=== PATIENT | female | born 1995 | race Caucasian/White ===

== ENCOUNTER 2016-09-22 04:03 | Emergency (ER) | payer OTHER ==
[~2016-09-22] VITALS: Ht 167.6 cm; Wt 121.6 kg
[2016-09-22 04:03] VITALS: BP 124/89
[~2016-09-22 04:03] MED LIST: birth control
[2016-09-22] MEDS ORDERED: HYDROcodone/APAP 5/325MG 1 TAB TABLET PO ONE (04:30)
--- NOTE | 2016-09-22 05:56 | ED.ADGEN ---
Past Medical History Past Medical History: Asthma, Other Additional Past Medical Histor: MRSA Past Surgical History: Tonsillectomy, Other Additional Past Surgical Histo: "on the back of my knee for MRSA"- L knee, wisdom teeth Alcohol Use: Occasionally Drug Use: None Adult General Chief Complaint Chief Complaint: FACE PAIN HPI HPI Patient is a 21 year old female who presents with dental pain. Patient reports pain tenderness swelling toright lower posterior lower. No dysphonia and dysphagia, drooling or trismus. took ibuprofen and hydrocodone prior to ED arrival without significant improvement. Review of Systems Review of Systems Via symptoms as prescribed. All other review symptoms are negative. Current Medications Current Medications Current Medications Medications (Trade) Dose Ordered Sig/Chen Start Time Stop Time Status Last Admin Dose Admin Acetaminophen/ Hydrocodone Bitart (Lortab 5/325) 1 tab 1X ONCE 09/22/16 04:30 09/22/16 04:31 DC 09/22/16 04:33 1 TAB Allergies Allergies Allergies Coded Allergies Type Severity Reaction Last Updated Verified No Known Drug Allergies 10/28/13 No Physical Exam Physical Exam Constitutional: Well developed, well nourished, no acute distress, non-toxic appearance. [] HENT: Normocephalic, atraumatic, bilateral external ears normal, oropharynx moist, posterior molar, pain tenderness, no soft tissue facialswelling or abscess. No hoarseness, droolingor trismus. Eyes: PERRLA, EOMI, conjunctiva normal, no discharge. Current Patient Data Vital Signs Vital Signs Date Time Temp Pulse Resp B/P (MAP) Pulse Ox O2 Delivery O2 Flow Rate FiO2 09/22/16 04:33 16 09/22/16 04:03 98.4 94 98 Room Air 98.4 EKG EKG [] Radiology/Procedures Radiology/Procedures [] Course & Med Decision Making Course & Med Decision Making Pertinent Labs and Imaging studies reviewed. (See chart for details) [Pain addressed.. Antibiotics prescribed with recommendation of early dental follow-up.] Dragon Disclaimer Dragon Disclaimer This electronic medical record was generated, in whole or in part, using a voice recognition dictation system. EDWIN HENRY DO Sep 22, 2016 05:56
== END 2016-09-22 04:35 | disposition home or self-care (01) ==
LOC: ER 04:03
DX: K08.89 Other specified disorders of teeth and supporting structures (principal); J45.909 Unspecified asthma, uncomplicated; Z86.14 Personal history of Methicillin resistant Staphylococcus aureus infection
CPT/HCPCS: 99283

== ENCOUNTER 2017-10-10 19:20 | Emergency (ER) | payer OTHER ==
[~2017-10-10] VITALS: Ht 170.2 cm; Wt 83.9 kg
[2017-10-10 20:57] VITALS: BP 133/87
--- NOTE | 2017-10-10 21:16 | PHYS DOC ---
Past Medical History Past Medical History: Asthma, Other Additional Past Medical Histor: MRSA Past Surgical History: Tonsillectomy, Other Additional Past Surgical Histo: "on the back of my knee for MRSA"- L knee, wisdom teeth Alcohol Use: Occasionally Drug Use: None Adult General Chief Complaint Chief Complaint: Neck Pain HPI HPI Patient is a 22 year old female presents to the ED complaining of lymph node swelling 1 day. States she woke up and felt a swollen lymph node on the right side of her neck. States she has had a runny nose since yesterday. Denies chest pain, shortness of breath, weight loss, night sweats, fever, sore throat, ear pain, itchy or watery eyes, dizziness, headache, nausea/vomiting or diarrhea. Review of Systems Review of Systems Constitutional: Denies fever or chills [] Eyes: Denies change in visual acuity, redness, or eye pain [] HENT: Complains of rhinorrhea. Denies sore throat [] Respiratory: Denies cough or shortness of breath [] Cardiovascular: No additional information not addressed in HPI [] GI: Denies abdominal pain, nausea, vomiting, bloody stools or diarrhea [] : Denies dysuria or hematuria [] Musculoskeletal: Denies back pain or joint pain [] Integument: Denies rash or skin lesions [] Neurologic: Denies headache, focal weakness or sensory changes []] All other systems were reviewed and found to be within normal limits, except as documented in this note. Allergies Allergies Allergies Coded Allergies Type Severity Reaction Last Updated Verified No Known Drug Allergies 10/28/13 No Physical Exam Physical Exam Constitutional: Well developed, well nourished, no acute distress, non-toxic appearance. [] HENT: Normocephalic, atraumatic, bilateral external ears normal, oropharynx moist, no oral exudates, nose normal. [] Eyes: PERRLA, EOMI, conjunctiva normal, no discharge. [] Neck: Normal range of motion, no tenderness, supple, no stridor. pea sized soft mobile anterior cervical chain lymphadenopathy. not hard or fixed.[] Cardiovascular:Heart rate regular rhythm, no murmur [] Lungs & Thorax: Bilateral breath sounds clear to auscultation [] Abdomen: Bowel sounds normal, soft, no tenderness, no masses, no pulsatile masses. [] Skin: Warm, dry, no erythema, no rash. [] Back: No tenderness, no CVA tenderness. [] Extremities: No tenderness, no cyanosis, no clubbing, ROM intact, no edema. [] Neurologic: Alert and oriented X 3, normal motor function, normal sensory function, no focal deficits noted. [] Psychologic: Affect normal, judgement normal, mood normal. [] Current Patient Data Vital Signs Vital Signs Date Time Temp Pulse Resp B/P (MAP) Pulse Ox O2 Delivery O2 Flow Rate FiO2 10/10/17 20:57 98.3 88 18 133/87 (102) 99 Room Air 98.3 EKG EKG [] Radiology/Procedures Radiology/Procedures [] Course & Med Decision Making Course & Med Decision Making Pertinent Labs and Imaging studies reviewed. (See chart for details) []Patient's lymph node swelling is most likely due to viral illness. Discussed symptomatic treatment, hydration and otc medications outpatient. Discussed observing lymph node and following up with PCP outpatient. Provided contact information/education. Discussed symptoms to return to the ED. Patient understands and agrees with plan. Dragon Disclaimer Dragon Disclaimer This electronic medical record was generated, in whole or in part, using a voice recognition dictation system. Departure Departure Impression: Primary Impression: Viral illness Additional Impression: Lymphadenopathy Disposition: 01 HOME, SELF-CARE Condition: STABLE Referrals: NO PCP (PCP) JENNIFER SIMPSON MD Patient Instructions: Viral Infections Problem Qualifiers GUERA MURO Oct 10, 2017 21:16
== END 2017-10-10 21:56 | disposition home or self-care (01) ==
LOC: ER 19:20
DX: R59.0 Localized enlarged lymph nodes (principal); B34.9 Viral infection, unspecified; J45.909 Unspecified asthma, uncomplicated; Z90.89 Acquired absence of other organs
CPT/HCPCS: 99281

== ENCOUNTER 2017-10-29 17:06 | Emergency (ER) | payer SELFPAY ==
[~2017-10-29] VITALS: Ht 170.2 cm; Wt 87.1 kg
[2017-10-29] MEDS ORDERED: DIPHTH,PERTUSS(ACELL),TET TOX 0.5 ML DISP.SYRIN. VAX IM ONE (18:00)
--- NOTE | 2017-10-29 18:01 | PHYS DOC ---
Past Medical History Past Medical History: Asthma, Other Additional Past Medical Histor: MRSA Past Surgical History: Tonsillectomy, Other Additional Past Surgical Histo: "on the back of my knee for MRSA"- L knee, wisdom teeth Alcohol Use: Occasionally Drug Use: None Adult General Chief Complaint Chief Complaint: ANKLE PROBLEM HPI HPI Patient is a 22 year old female with history of asthma who presents today complaining of 8 out of 10 sharp right lateral ankle pain worse on weight- bearing that began today after she tripped and fell in her driveway. Patient denies any loss of consciousness, denies hitting her head on the ground. She states she has not taken anything for her pain. Denies any chance she is . Review of Systems Review of Systems Constitutional: Denies fever or chills [] Musculoskeletal: Reports right lateral ankle pain Integument: Denies rash or skin lesions [] Neurologic: Denies headache, focal weakness or sensory changes [] All other systems were reviewed and found to be within normal limits, except as documented in this note. Current Medications Current Medications Current Medications Medications (Trade) Dose Ordered Sig/Chen Start Time Stop Time Status Last Admin Dose Admin Diphtheria/ Tetanus/Acell Pertussis (Boostrix) 0.5 ml ONCE ONCE 10/29/17 18:00 10/29/17 18:10 DC 10/29/17 18:26 0.5 ML Allergies Allergies Allergies Coded Allergies Type Severity Reaction Last Updated Verified No Known Drug Allergies 10/28/13 No Physical Exam Physical Exam Constitutional: Well developed, well nourished, no acute distress, non-toxic appearance. [] Skin: Warm, dry, no erythema, no rash. [] Back: No tenderness, no CVA tenderness. [] Extremities: Right ankle with no obvious deformity. Small amount of soft tissue swelling noted on the right lateral ankle. Tenderness on palpation of the right lateral ankle. Full range of motion to the right ankle and foot. +2 right pedal pulse. Cap refill less than 2 seconds the right toes. Sensation intact to the right lower extremity. Left knee noted with multiple abrasions. Patient declined x-rays to the knee. Neurologic: Alert and oriented X 3, normal motor function, normal sensory function, no focal deficits noted. [] Psychologic: Affect normal, judgement normal, mood normal. [] Current Patient Data Vital Signs Vital Signs Date Time Temp Pulse Resp B/P (MAP) Pulse Ox O2 Delivery O2 Flow Rate FiO2 10/29/17 18:15 99.0 91 18 124/74 (91) 96 Room Air 99.0 EKG EKG [] Radiology/Procedures Radiology/Procedures [] Course & Med Decision Making Course & Med Decision Making Pertinent Labs and Imaging studies reviewed. (See chart for details) This is a 22-year-old female patient presenting to the ED today with complaints of right lateral ankle pain status post falling. She does have bruising to the left knee and she declined x-rays. Tetanus was updated. Right ankle x-rays interpreted by Dr. Perez are negative for any acute findings. Air cast provided to the right ankle. Ice elevation encouraged. OTC pain relievers especially anti-inflammatories recommended. Follow-up with primary care doctor or the provided orthopedic doctor in one week if pain continues. Dragon Disclaimer Dragon Disclaimer This electronic medical record was generated, in whole or in part, using a voice recognition dictation system. Departure Departure Impression: Primary Impression: Fall from standing Additional Impressions: Right ankle sprain Contusion of left knee Disposition: HOME, SELF-CARE Condition: STABLE Referrals: UNKNOWN PCP NAME (PCP) CAMDEN JAQUEZ MD follow up in one week Patient Instructions: Ankle Sprain, Contusion, [id number], Fall Prevention and Home Safety Additional Instructions: You were seen for right ankle sprain. Ice elevate the extremity. Take over-the- counter pain relievers especially anti-inflammatories as needed for pain. Keep the left knee clean. You can shower and wash your left knee with regular soap and water. Apply Neosporin over the left knee twice a day. Monitor the knee for any signs of infection including but not limited to increased redness to the area, warmth to the area, yellow drainage from the area and return to the ED if they occur. Complete your antibiotics. Scripts Cephalexin (CEPHALEXIN) 500 Mg Tablet 1 TAB PO QID, #40 TAB Prov: SARA GONZALEZ SUPERVISOR [employer]TERN 10/29/17 Problem Qualifiers Primary Impression: Fall from standing Encounter type: initial encounter Qualified Codes: W19.XXXA - Unspecified fall, initial encounter Additional Impressions: Right ankle sprain Encounter type: initial encounter Involved ligament of ankle: unspecified ligament Qualified Codes: S93.401A - Sprain of unspecified ligament of right ankle, initial encounter Contusion of left knee Encounter type: initial encounter Qualified Codes: S80.02XA - Contusion of left knee, initial encounter SARA GONZALEZ APRN Oct 29, 2017 18:01
[2017-10-29 18:15] VITALS: BP 124/74
[2017-10-29] MEDS ORDERED: CEPH500T PO (18:44)
--- NOTE | 2017-10-30 08:42 | RAD ---
Right ankle, 3 views, 10/29/2017: HISTORY: Fall, ankle injury No fracture or dislocation is identified. There is minimal soft tissue swelling laterally. IMPRESSION: No acute bony abnormality is detected. Electronically signed by: Jeremias Roy MD (10/30/2017 8:38 AM) [facility] [place]
== END 2017-10-29 19:02 | disposition home or self-care (01) ==
LOC: ER 17:06
DX: S93.401A Sprain of unspecified ligament of right ankle, initial encounter (principal); S80.02XA Contusion of left knee, initial encounter; J45.909 Unspecified asthma, uncomplicated; Z90.89 Acquired absence of other organs; W01.0XXA Fall on same level from slipping, tripping and stumbling without subsequent striking against object, initial encounter; Y93.89 Activity, other specified; Y92.89 Other specified places as the place of occurrence of the external cause; Y99.8 Other external cause status
CPT/HCPCS: 73610; 90471; 90715; 99284; L4350

== ENCOUNTER 2018-01-23 18:31 | Emergency (ER) | payer OTHER ==
[~2018-01-23] VITALS: Ht 170.2 cm; Wt 87.1 kg
[~2018-01-23 18:31] MED LIST changes: +CEPH500T PO
[2018-01-23 18:42] VITALS: BP 125/80
[2018-01-23] MEDS ORDERED: NAPROXEN 500 MG TABLET PO STA (18:57)
--- NOTE | 2018-01-23 19:01 | PHYS DOC ---
Past Medical History Past Medical History: Asthma, Other Additional Past Medical Histor: MRSA Past Surgical History: Tonsillectomy, Other Additional Past Surgical Histo: "on the back of my knee for MRSA"- L knee, wisdom teeth Alcohol Use: Occasionally Drug Use: None Adult General Chief Complaint Chief Complaint: ANKLE PROBLEM HPI HPI Patient is a 23 year old female who presents to the emergency room with complaints of right lateral ankle pain and swelling after rolling her foot inwards while going down some steps at home today. Patient states that the injury happened approximately 15 minutes prior to arrival. She states that her ankle feels numb at this time and denies any pain. Patient states she has been unable to bear weight on the affected extremity since the injury due to increased pain with weightbearing. Review of Systems Review of Systems Musculoskeletal: See history of present illness Integument: Denies rash or skin lesions [] Neurologic: Denies headache, focal weakness; see history of present illness All other systems were reviewed and found to be within normal limits, except as documented in this note. Current Medications Current Medications Current Medications Medications (Trade) Dose Ordered Sig/Chen Start Time Stop Time Status Last Admin Dose Admin Naproxen (Naprosyn) 500 mg 1X STAT 01/23/18 18:57 01/23/18 19:00 DC 01/23/18 19:14 500 MG Allergies Allergies Allergies Coded Allergies Type Severity Reaction Last Updated Verified No Known Drug Allergies 10/28/13 No Physical Exam Physical Exam Constitutional: Well developed, well nourished, no acute distress, non-toxic appearance. [] HENT: Normocephalic, atraumatic, bilateral external ears normal, nose normal. [] Eyes: conjunctiva normal, no discharge. [] Skin: Warm, dry, no erythema, no rash. [] Extremities: Right lateral ankle tenderness, no cyanosis, no clubbing, limited ROM of right ankle due to pain, 1+ edema of right ankle Neurologic: Alert and oriented X 3, normal motor function, normal sensory function, no focal deficits noted. [] Psychologic: Affect normal, judgement normal, mood normal. [] Current Patient Data Vital Signs Vital Signs Date Time Temp Pulse Resp B/P (MAP) Pulse Ox O2 Delivery O2 Flow Rate FiO2 01/23/18 18:42 98.8 114 18 125/80 (95) 98 Room Air 98.8 EKG EKG [] Radiology/Procedures Radiology/Procedures R ankle negative for acute fx or dislocation read by Dr. Lau] Course & Med Decision Making Course & Med Decision Making Pertinent Labs and Imaging studies reviewed. (See chart for details) dx: R ankle sprain X-ray was negative for acute fx or dislocation. Pt was placed in a air cast and given crutches. Follow up with Dr. Prieto. Rx for hydrocodone prn. Patient verbalized an understanding of home care, medications, follow-up, and return to ED instructions and was in agreement with the plan of care. Staff Physician Addendum: I was working in the ER during the course of this patient's visit. I was available for consultation as needed, but I was not directly involved in the care of this patient. [] Dragon Disclaimer Dragon Disclaimer This electronic medical record was generated, in whole or in part, using a voice recognition dictation system. Departure Departure Impression: Primary Impression: Right ankle sprain Disposition: HOME, SELF-CARE Condition: STABLE Referrals: ELIZ PRIETO II, MD Patient Instructions: Ankle Sprain, [id number] Additional Instructions: Fill prescription(s) and use as directed. Recommend application of ice, elevation, and rest of affected extremity. Wear the splint that was placed until follow up appointment. Return to the ER if your symptoms worsen. Scripts Hydrocodone Bit/Acetaminophen (HYDROCODONE-APAP 5-325 ) 1 Each Tablet 1 TAB PO PRN Q6HRS PRN for PAIN for 3 Days, #12 TAB 0 Refills Prov: KENJI MONTOYA MANAGER [employer]ER 01/23/18 Problem Qualifiers Primary Impression: Right ankle sprain Encounter type: initial encounter Involved ligament of ankle: unspecified ligament Qualified Codes: S93.401A - Sprain of unspecified ligament of right ankle, initial encounter KENJI MONTOYA MANAGER [employer]CER Jan 23, 2018 19:01 ALESSANDRO LAU MD Jan 23, 2018 21:31
[2018-01-23] MEDS ORDERED: HYDR-2761 PO (19:26)
--- NOTE | 2018-01-24 01:52 | RAD ---
Three-view right ankle radiographs 01/23/2018 CLINICAL HISTORY: Fall from stairs with injury to the right ankle. AP, lateral and oblique digital radiographs of the right ankle were obtained. The right ankle mortise is intact. Soft tissue swelling is seen adjacent to the lateral malleolus. No fracture or dislocation right ankle is seen. IMPRESSION: No fracture or dislocation of the right ankle is seen. Electronically signed by: Nate Dennison MD (01/24/2018 1:49 AM) [facility]
== END 2018-01-23 19:39 | disposition home or self-care (01) ==
LOC: ER 18:31
DX: S93.401A Sprain of unspecified ligament of right ankle, initial encounter (principal); G89.11 Acute pain due to trauma; J45.909 Unspecified asthma, uncomplicated; X50.9XXA Other and unspecified overexertion or strenuous movements or postures, initial encounter; Y93.89 Activity, other specified; Y92.098 Other place in other non-institutional residence as the place of occurrence of the external cause; Y99.8 Other external cause status
CPT/HCPCS: 29515; 73610; 99283-25

== ENCOUNTER 2019-03-12 04:08 | Emergency (ER) | payer SELFPAY ==
[~2019-03-12] VITALS: Ht 170.2 cm; Wt 94.8 kg
[~2019-03-12 04:08] MED LIST changes: +HYDR-2761 PO
[2019-03-12] MEDS ORDERED: PENI500T PO (04:40)
[2019-03-12 04:50] VITALS: BP 128/82
--- NOTE | 2019-03-12 05:13 | PHYS DOC ---
Past Medical History Past Medical History: No Pertinent History Additional Past Medical Histor: MRSA Past Surgical History: No Surgical History Additional Past Surgical Histo: "on the back of my knee for MRSA"- L knee,wisdom teeth Alcohol Use: Occasionally Drug Use: None Adult General Chief Complaint Chief Complaint: TOOTH ACHE OR PAIN [facility] HPI Patient is a 24 year old female who presents with left mandible pain, swelling, and chronic dental caries. Symptom onset was 2 days ago. The medications at therapy's taken prior to ED arrival. Patient did leave work secondary to pain. Patient has not contacted dentist. [] Review of Systems Review of Systems ROS as per HPI All other systems were reviewed and found to be within normal limits, except as documented in this note. Allergies Allergies Allergies Coded Allergies Type Severity Reaction Last Updated Verified No Known Drug Allergies 10/28/13 No Physical Exam Physical Exam Constitutional: Well developed, well nourished, no acute distress, non-toxic appearance. [] HENT: Normocephalic, atraumatic, bilateral external ears normal, oropharynx moist, chronic dental caries with eroded posterior molars, nose normal. Left submandibular lymphadenopathy.[] Eyes: PERRLA, EOMI, conjunctiva normal, no discharge. [] Neck: Normal range of motion, no tenderness, supple. Back: No tenderness. [] Extremities: No tenderness, no cyanosis, no clubbing, ROM intact, no edema. [] Neurologic: Alert and oriented X 3, normal motor function, normal sensory function, no focal deficits noted. [] Psychologic: Affect normal, judgement normal, mood normal. [] Current Patient Data Vital Signs Vital Signs Date Time Temp Pulse Resp B/P (MAP) Pulse Ox O2 Delivery O2 Flow Rate FiO2 03/12/19 04:50 97 22 128/82 (97) 98 Room Air 03/12/19 04:30 98.7 98.7 EKG EKG [] Radiology/Procedures Radiology/Procedures [] Course & Med Decision Making Course & Med Decision Making Pertinent Labs and Imaging studies reviewed. (See chart for details) Abx Rx given. Instructed to follow up with dentist ZOYA ] José Miguel Disclaimer José Miguel Disclaimer This electronic medical record was generated, in whole or in part, using a voice recognition dictation system. Departure Departure Impression: Primary Impression: Pain due to dental caries Disposition: HOME, SELF-CARE Condition: STABLE Patient Instructions: Dental Abscess, Dental Caries-Brief Additional Instructions: Take antibiotics as directed and follow up with a dentist as soon as possible. Scripts Penicillin V Potassium (PENICILLIN V POTASSIUM) 500 Mg Tablet 1 TAB PO QID, #40 TAB Prov: EDWIN HENRY DO 03/12/19 EDWIN HENRY DO Mar 12, 2019 05:13
== END 2019-03-12 04:53 | disposition home or self-care (01) ==
LOC: ER 04:08
DX: K02.9 Dental caries, unspecified (principal); K08.89 Other specified disorders of teeth and supporting structures; R68.84 Jaw pain; Z86.14 Personal history of Methicillin resistant Staphylococcus aureus infection; Z98.890 Other specified postprocedural states
CPT/HCPCS: 99283

== ENCOUNTER 2019-05-01 23:55 | Emergency (ER) | payer SELFPAY ==
[~2019-05-01] VITALS: Ht 170.2 cm; Wt 93.0 kg
[~2019-05-01 23:55] MED LIST changes: +PENI500T PO
[2019-05-02 00:10] VITALS: BP 128/73
--- NOTE | 2019-05-02 01:08 | PHYS DOC ---
Past Medical History Past Medical History: No Pertinent History Additional Past Medical Histor: MRSA Past Surgical History: No Surgical History Additional Past Surgical Histo: "on the back of my knee for MRSA"- L knee,wisdom teeth Smoking Status: Current Every Day Smoker Alcohol Use: None Drug Use: None Adult General Chief Complaint Chief Complaint: FINGER INJURY HPI HPI Patient is a 24 year old female who presents to the emergency department with complaints of right fourth digit pain, swelling, and decreased range of motion after accidentally closing her hand in the animal carrier earlier today at approximately 1300. She denies any numbness, or tingling of the affected finger. Patient states she is unable to bend her finger. She currently denies any pain. Review of Systems Review of Systems Complete ROS is negative unless otherwise noted in HPI. Allergies Allergies Allergies Coded Allergies Type Severity Reaction Last Updated Verified No Known Drug Allergies 10/28/13 No Physical Exam Physical Exam See Above Constitutional: Well developed, well nourished, no acute distress, non-toxic appearance. [] HENT: Normocephalic, atraumatic, bilateral external ears normal, nose normal. [] Eyes: PERRLA, EOMI, conjunctiva normal, no discharge. [] Neck: Normal range of motion, no stridor. [] Cardiovascular:Heart rate regular rhythm Lungs & Thorax: Respirations even and unlabored, no retractions, no respiratory distress Skin: Warm, dry, no erythema, no rash. [] Extremities: R hand: R 4th digit TTP over the PIP, Limited ROM of R 4th finger due to pain, no cyanosis, no clubbing, no obvious deformity, no edema Neurologic: Alert and oriented X 3, no focal deficits noted. [] Psychologic: Affect normal, judgement normal, mood normal. [] Current Patient Data Vital Signs Vital Signs Date Time Temp Pulse Resp B/P (MAP) Pulse Ox O2 Delivery O2 Flow Rate FiO2 05/02/19 00:10 98.0 93 16 128/73 (91) 98 Room Air 98.0 EKG EKG [] Radiology/Procedures Radiology/Procedures X-ray of R 4th digit negative for acute findings or fracture read by Dr. Barlow [] Course & Med Decision Making Course & Med Decision Making Pertinent Labs and Imaging studies reviewed. (See chart for details) [] Dragon Disclaimer Dragon Disclaimer This electronic medical record was generated, in whole or in part, using a voice recognition dictation system. Departure Departure Impression: Primary Impression: Contusion of ring finger without damage to nail Disposition: HOME, SELF-CARE Condition: STABLE Referrals: UNKNOWN PCP NAME (PCP) Patient Instructions: Contusion, [id number] Additional Instructions: You may take Tylenol or ibuprofen as needed for pain. Apply ice to the affected area as needed for comfort. Follow-up with your primary care doctor if sym ptoms persist, return to the ER if symptoms worsen. Problem Qualifiers Primary Impression: Contusion of ring finger without damage to nail Encounter type: initial encounter Laterality: right Qualified Codes: S60.041A - Contusion of right ring finger without damage to nail, initial encounter KENJI OMNTOYA APRN May 02, 2019 01:08
--- NOTE | 2019-05-02 01:20 | RAD ---
FINGER(S) RIGHT History: Right fourth digit pain. Technique: PA view the hand with 2 additional views of the fourth digit. Comparison: None. Findings: Normal alignment. No fracture. Soft tissues unremarkable. Impression: 1. No acute osseous abnormality. Electronically signed by: Nic Lock DO (05/02/2019 1:17 AM) [id number]
== END 2019-05-02 02:02 | disposition home or self-care (01) ==
LOC: ER 23:55
DX: S60.041A Contusion of right ring finger without damage to nail, initial encounter (principal); F17.200 Nicotine dependence, unspecified, uncomplicated; Z98.890 Other specified postprocedural states; Y29.XXXA Contact with blunt object, undetermined intent, initial encounter; Y93.89 Activity, other specified; Y92.89 Other specified places as the place of occurrence of the external cause; Y99.8 Other external cause status
CPT/HCPCS: 73140; 99283

== ENCOUNTER 2019-09-09 18:31 | Emergency (ER) | payer SELFPAY ==
[~2019-09-09] VITALS: Ht 170.2 cm; Wt 69.6 kg
[2019-09-09 18:45] VITALS: BP 135/63
[2019-09-09] MEDS ORDERED: IV NORMAL SALINE 1000ML BAG 1,000 ML IV ONE (18:45)
[2019-09-09] MEDS ORDERED: PROCHLORPERAZINE 10 MG/2 ML VIAL. IV ONE (18:45)
--- NOTE | 2019-09-09 18:48 | PHYS DOC ---
Past Medical History Past Medical History: No Pertinent History Additional Past Medical Histor: MRSA Past Surgical History: No Surgical History Additional Past Surgical Histo: "on the back of my knee for MRSA"- L knee,wisdom teeth Smoking Status: Current Every Day Smoker Alcohol Use: None Drug Use: None General Adult EDM: Chief Complaint: DIZZY/LIGHT HEADED HPI: HPI: Patient is a 24 year old female who presents for evaluation of dizziness weakness as well as repeated nausea and vomiting. Patient states she is about 12 weeks . Patient denies any abdominal pain or vaginal bleeding. Patient is a 2 para 1. She does not know her due date. Patient gets her care at [facility]. Patient is in mild distress on arrival. Patient has a negative blood type but is not having any bleeding or pain at this time. Patient does not have nausea medication at home. Furthermore she has not been able to tolerate her vitamins because of the nausea. Review of Systems: Review of Systems: Constitutional: Denies fever or chills. [] Eyes: Denies change in visual acuity. [] HENT: Denies nasal congestion or sore throat. [] Respiratory: Denies cough or shortness of breath. [] Cardiovascular: Denies chest pain or edema. [] GI: Denies abdominal pain, has nausea and vomiting,no bloody stools or diarrhea. [] : Denies dysuria. [] Musculoskeletal: Denies back pain or joint pain. [] Integument: Denies rash. [] Neurologic: Denies headache, focal weakness or sensory changes. [] Endocrine: Denies polyuria or polydipsia. [] Lymphatic: Denies swollen glands. [] Psychiatric: Denies depression or anxiety. [] Heart Score: Risk Factors: Risk Factors: DM, Current or recent (<one month) smoker, HTN, HLP, family history of CAD, obesity. Risk Scores: Score 0 - 3: 2.5% MACE over next 6 weeks - Discharge Home Score 4 - 6: 20.3% MACE over next 6 weeks - Admit for Clinical Observation Score 7 - 10: 72.7% MACE over next 6 weeks - Early Invasive Strategies Allergies: Allergies: Allergies Coded Allergies Type Severity Reaction Last Updated Verified No Known Drug Allergies 10/28/13 No Physical Exam: PE: Constitutional: Well developed, well nourished, mild acute distress, non-toxic appearance. [] HENT: Normocephalic, atraumatic, bilateral external ears normal, oropharynx moist, no oral exudates, nose normal. [] Eyes: PERRL, EOMI, conjunctiva normal, no discharge. [] Neck: Normal range of motion, no tenderness, supple, no stridor. [] Cardiovascular:Heart rate regular rhythm, no murmur [] Lungs & Thorax: Bilateral breath sounds clear to auscultation [] Abdomen: Bowel sounds normal, soft, no tenderness, no masses. [] Skin: Warm, dry, no erythema, no rash. [] Back: No tenderness, no CVA tenderness. [] Extremities: No tenderness, no cyanosis, ROM intact, no edema. [] Neurologic: Alert and oriented X 3, normal motor function, normal sensory function, no focal deficits noted. [] Psychologic: Affect normal, judgement normal, mood normal. [] Current Patient Data: Labs: Laboratory Tests Test 09/09/19 18:39 09/09/19 18:53 09/09/19 19:00 Urine Collection Type Unknown Urine Color Yellow Urine Clarity Clear Urine pH 7.0 Urine Specific [place]man 1.025 Urine Protein Negative mg/dL Urine Glucose (UA) Negative mg/dL Urine Ketones (Stick) Negative mg/dL Urine Blood Negative Urine Nitrite Negative Urine Bilirubin Negative Urine Urobilinogen Dipstick 1.0 mg/dL Urine Leukocyte Esterase Small Urine RBC 0 /HPF Urine WBC Rare /HPF Urine Squamous Epithelial Cells Many /LPF Urine Bacteria Many /HPF Urine Mucus Marked /LPF Bedside Urine HCG, Qualitative Hcg positive White Blood Count 6.4 x10^3/uL Red Blood Count 4.41 x10^6/uL Hemoglobin 12.7 g/dL Hematocrit 37.6 % Mean Corpuscular Volume 85 fL Mean Corpuscular Hemoglobin 29 pg Mean Corpuscular Hemoglobin Concent 34 g/dL Red Cell Distribution Width 15.7 % Platelet Count 216 x10^3/uL Neutrophils (%) (Auto) 63 % Lymphocytes (%) (Auto) 28 % Monocytes (%) (Auto) 6 % Eosinophils (%) (Auto) 3 % Basophils (%) (Auto) 1 % Neutrophils # (Auto) 4.1 x10^3/uL Lymphocytes # (Auto) 1.8 x10^3/uL Monocytes # (Auto) 0.4 x10^3/uL Eosinophils # (Auto) 0.2 x10^3/uL Basophils # (Auto) 0.0 x10^3/uL Sodium Level 134 mmol/L Potassium Level 3.7 mmol/L Chloride Level 101 mmol/L Carbon Dioxide Level 25 mmol/L Anion Gap 8 Blood Urea Nitrogen 10 mg/dL Creatinine 0.8 mg/dL Estimated GFR (Cockcroft-Gault) 87.4 BUN/Creatinine Ratio 13 Glucose Level 79 mg/dL Calcium Level 8.3 mg/dL Total Bilirubin 0.2 mg/dL Aspartate Amino Transf (AST/SGOT) 10 U/L Alanine Aminotransferase (ALT/SGPT) 17 U/L Alkaline Phosphatase 62 U/L Total Protein 7.4 g/dL Albumin 3.2 g/dL Albumin/Globulin Ratio 0.8 Current Medications Medications (Trade) Dose Ordered Sig/Chen Route PRN Reason Start Time Stop Time Status Last Admin Dose Admin Sodium Chloride 1,000 ml @ 999 mls/hr 1X ONCE IV 09/09/19 18:45 09/09/19 19:45 09/09/19 19:03 Prochlorperazine Edisylate (Compazine) 10 mg 1X ONCE IV 09/09/19 18:45 09/09/19 18:47 DC 09/09/19 19:02 EKG: EKG: [] Radiology/Procedures: Radiology/Procedures: [] Course & Med Decision Making: Course & Med Decision Making Pertinent Labs and Imaging studies reviewed. (See chart for details) [] Dragon Disclaimer: José Miguel Disclaimer: This electronic medical record was generated, in whole or in part, using a voice recognition dictation system. 1935 stable, feeling better now. Will given rx for keflex for her early UTI and phenergan for nausea. Pt stable and ready for discharge. She did not want any more IVF's. Departure Departure Impression: Primary Impression: Hyperemesis gravidarum Additional Impression: Acute UTI Disposition: HOME, SELF-CARE Condition: GOOD Referrals: UNKNOWN PCP NAME (PCP) Patient Instructions: Hyperemesis Gravidarum, Urinary Tract Infection Additional Instructions: Drink plenty fluids, rest, medication as directed, call and see your [employer] right away in follow-up Scripts Promethazine Hcl (PROMETHAZINE HCL) 12.5 Mg Tablet 1 TAB PO Q6-8HRS for motion sickness for 5 Days, #20 TAB 0 Refills Prov: YNES ROSENTHAL DO 09/09/19 Cephalexin (KEFLEX) 500 Mg Capsule 1 CAP PO QID for 7 Days, #28 CAP 0 Refills Prov: YNES ROSENTHAL DO 09/09/19 Justicifation of Admission Dx: Justifications for Admission: Justification of Admission Dx: N/A YNES ROSENTHAL DO Sep 09, 2019 18:48
[2019-09-09 18:55] LABS: BILIRUBIN,URINE NEGATIVE (NEG); CLARITY,URINE CLEAR; COLOR,URINE YELLOW; NITRITE,URINE NEGATIVE (NEG); PROTEIN,URINE NEGATIVE (NEG-TRACE)
[2019-09-09 19:15] LABS: BACTERIA,URINE MANY /HPF (0-FEW); SQUAMOUS EPITHELIAL CELL,UR MANY /LPF
[2019-09-09 19:16] LABS: RBC,URINE 0 /HPF (0-2); WBC,URINE RARE /HPF (0-4)
[2019-09-09 19:22] LABS: BASO % 1 % (0-3); EOS # 0.2 x10^3/uL (0.0-0.7); EOS % 3 % (0-3); HEMATOCRIT 37.6 % (36.0-47.0); HEMOGLOBIN 12.7 g/dL (12.0-15.5); LYMPH # 1.8 x10^3/uL (1.0-4.8); LYMPH % 28 % (24-48); MEAN CORPUSCULAR HEMOGLOBIN 29 pg (25-35); MEAN CORPUSCULAR HGB CONC 34 g/dL (31-37); MEAN CORPUSCULAR VOLUME 85 fL (79-100); MONO # 0.4 x10^3/uL (0.0-1.1); MONO % 6 % (0-9); NEUT # 4.1 x10^3/uL (1.8-7.7); NEUT % 63 % (31-73); PLATELET COUNT 216 x10^3/uL (140-400); RED BLOOD COUNT 4.41 x10^6/uL (3.50-5.40); RED CELL DISTRIBUTION WIDTH 15.7 % (11.5-14.5); WHITE BLOOD COUNT 6.4 x10^3/uL (4.0-11.0)
[2019-09-09 19:23] LABS: CALCIUM 8.3 mg/dL (8.5-10.1); CREATININE 0.8 mg/dL (0.6-1.0); GFR 87.4; POTASSIUM 3.7 mmol/L (3.5-5.1)
[2019-09-09 19:30] LABS: ALBUMIN 3.2 g/dL (3.4-5.0); ALBUMIN/GLOBULIN RATIO 0.8 (1.0-1.7); TOTAL BILIRUBIN 0.2 mg/dL (0.2-1.0); TOTAL PROTEIN 7.4 g/dL (6.4-8.2)
[2019-09-09] MEDS ORDERED: CEPH-264 PO (19:41)
[2019-09-09] MEDS ORDERED: PROM12.58 PO (19:41)
== END 2019-09-09 19:49 | disposition home or self-care (01) ==
LOC: ER 18:31
DX: O23.41 Unspecified infection of urinary tract in pregnancy, first trimester (principal); O21.9 Vomiting of pregnancy, unspecified; R42 Dizziness and giddiness; R53.1 Weakness; F17.200 Nicotine dependence, unspecified, uncomplicated; Z86.14 Personal history of Methicillin resistant Staphylococcus aureus infection; Z98.890 Other specified postprocedural states; Z79.899 Other long term (current) drug therapy; Z3A.00 Weeks of gestation of pregnancy not specified
CPT/HCPCS: 36415; 80053; 81001; 81025; 84702; 85025; 87086; 96361; 96374; 99283; J0780; J7030

== ENCOUNTER 2020-01-20 12:34 | Observation (INO) | payer OTHER ==
[~2020-01-20] VITALS: Ht 170.2 cm; Wt 89.9 kg
[~2020-01-20 12:34] MED LIST changes: +CEPH-264 PO; +PROM12.58 PO
[2020-01-20] MEDS ORDERED: IV RINGERS,LACTATED 1000ML 1,000 ML IV SCH (13:00)
[2020-01-20 13:49] LABS: AMPHETAMINE/METHAMPHETAMINE NEG (NEG); BACTERIA,URINE FEW /HPF (0-FEW); BARBITURATES NEG (NEG); BENZODIAZEPINES NEG (NEG); CANNABINOIDS NEG (NEG); CLARITY,URINE HAZY; COCAINE NEG (NEG); COLOR,URINE BROWN; METHADONE NEG (NEG); OPIATES NEG (NEG); PHENCYCLIDINE NEG (NEG); RBC,URINE 0 /HPF (0-2)
[2020-01-20 13:51] LABS: AMORPHOUS SEDIMENT,UR PRESENT /HPF
== END 2020-01-20 15:28 | disposition home or self-care (01) ==
LOC: 3 SO LND 12:34
PROVIDERS: ADMIT Obstetrics & Gynecology; ATTEND Obstetrics & Gynecology
DX: O62.9 Abnormality of forces of labor, unspecified (principal); O26.893 Other specified pregnancy related conditions, third trimester; R10.30 Lower abdominal pain, unspecified; Z3A.30 30 weeks gestation of pregnancy; Z79.899 Other long term (current) drug therapy
CPT/HCPCS: 59025; 80307; 81001; G0378; G0379